=== PATIENT | female | born 1995 | race Caucasian/White ===

== ENCOUNTER 2020-09-04 23:54 | Emergency (ER) | payer OTHER ==
[2020-09-05 03:06] LABS: BUN/CREATININE RATIO 19 (0-10)
[2020-09-05 03:16] LABS: HEMOGLOBIN 11.7 gm/dl (12.3-15.3); RED BLOOD COUNT 4.35 M/UL (4.00-5.10)
[2020-09-05] MEDS ORDERED: AEROCHAMBER1 EA XX (06:36)
[2020-09-05] MEDS ORDERED: VENTOLIN HFA 66.7 GM INH (06:36)
== END 2020-09-05 06:30 | disposition home or self-care (01) ==
LOC: ER1 23:54
PROVIDERS: Family Medicine
DX: R06.00 Dyspnea, unspecified (principal); J45.909 Unspecified asthma, uncomplicated; E11.9 Type 2 diabetes mellitus without complications; Z20.822 Contact with and (suspected) exposure to COVID-19; F17.210 Nicotine dependence, cigarettes, uncomplicated; Z79.4 Long term (current) use of insulin
CPT/HCPCS: 0240U; 71045; 80053; 82550; 82553; 83874; 84484; 85025; 93005; 99285

== ENCOUNTER 2021-03-22 03:18 | Emergency (ER) | payer OTHER ==
[~2021-03-22 03:18] MED LIST: AEROCHAMBER1 EA XX; VENTOLIN HFA 66.7 GM INH
[2021-03-22 03:40] LABS: HEMOGLOBIN 12.8 gm/dl (12.3-15.3); RED BLOOD COUNT 4.64 M/UL (4.00-5.10); WHITE BLOOD COUNT 14.2 K/UL (4.5-11.0)
[2021-03-22 04:05] LABS: BUN/CREATININE RATIO 8 (0-10)
[2021-03-22] MEDS ORDERED: PREDNISONE20 MG PO (06:50)
== END 2021-03-22 06:55 | disposition home or self-care (01) ==
LOC: ER1 03:18
PROVIDERS: Family Medicine
DX: J45.901 Unspecified asthma with (acute) exacerbation (principal); F41.0 Panic disorder [episodic paroxysmal anxiety]; E11.9 Type 2 diabetes mellitus without complications; F17.200 Nicotine dependence, unspecified, uncomplicated; Z88.1 Allergy status to other antibiotic agents; J02.9 Acute pharyngitis, unspecified; Z20.822 Contact with and (suspected) exposure to COVID-19
CPT/HCPCS: 71045; 80053; 80307; 81001; 82550; 82553; 82803; 82962; 83605; 83874; 84484; 85025; 87081; 87880; 96374; 96375; 99285; J0696; J2930; U0002

== ENCOUNTER 2021-11-17 17:23 | Inpatient (IN) | payer MEDICAID ==
[~2021-11-17] VITALS: Ht 149.9 cm; Wt 83.7 kg
[~2021-11-17 17:23] MED LIST changes: +PREDNISONE20 MG PO
[2021-11-17 20:07] LABS: HEMOGLOBIN 11.7 gm/dl (12.3-15.3); RED BLOOD COUNT 4.18 M/UL (4.00-5.10); WHITE BLOOD COUNT 15.8 K/UL (4.5-11.0)
[2021-11-17 20:09] LABS: BUN/CREATININE RATIO 21 (0-10)
[2021-11-18 02:54] LABS: HEMOGLOBIN 11.6 gm/dl (12.3-15.3); RED BLOOD COUNT 4.18 M/UL (4.00-5.10); WHITE BLOOD COUNT 14.2 K/UL (4.5-11.0)
[2021-11-18 03:24] LABS: BUN/CREATININE RATIO 23 (0-10)
[2021-11-18] MEDS ORDERED: LEVOFLOXACIN500 MG PO (10:35)
[2021-11-18] MEDS ORDERED: DOXYCYCLINE HY100 MG PO (10:35)
[2021-11-18] MEDS ORDERED: ABILIFY20 MG PO (11:12)
[2021-11-18] MEDS ORDERED: DEPAKOTE ER500 MG PO (11:13)
[2021-11-18] MEDS ORDERED: PROPRANOLOL HCL20 MG PO (11:14)
[2021-11-18] MEDS ORDERED: QUETIAPINE FUM400 MG PO (11:14)
[2021-11-19 03:55] LABS: HEMOGLOBIN 10.6 gm/dl (12.3-15.3); RED BLOOD COUNT 3.85 M/UL (4.00-5.10); WHITE BLOOD COUNT 10.7 K/UL (4.5-11.0)
[2021-11-19 05:11] LABS: BUN/CREATININE RATIO 14 (0-10)
--- NOTE | 2021-11-21 06:45 | NUR ---
BP 85/53. NOTIFIED MD AND RECIEVED ORDERS. WILL CONTINUE TO MONITOR.
[2021-11-21 06:49] LABS: HEMOGLOBIN 10.3 gm/dl (12.3-15.3); RED BLOOD COUNT 3.77 M/UL (4.00-5.10); WHITE BLOOD COUNT 8.3 K/UL (4.5-11.0)
[2021-11-21] MEDS ORDERED: ULTRAM50 MG PO (08:43)
[2021-11-21] MEDS ORDERED: ZYVOX600 MG PO (08:53)
[2021-11-21 14:07] LABS: BUN/CREATININE RATIO 19 (0-10)
--- NOTE | 2021-11-21 14:50 | NUR ---
PTS IV INFLITRATED AND PT IS REFUSING TO ALLOW US TO STICK HER AGAIN FOR ANOTHER IV. IS AWARE
[2021-11-22 07:06] LABS: HEMOGLOBIN 11.7 gm/dl (12.3-15.3)
[2021-11-22 07:18] LABS: RED BLOOD COUNT 4.32 M/UL (4.00-5.10); WHITE BLOOD COUNT 12.6 K/UL (4.5-11.0)
[2021-11-22 07:58] LABS: BUN/CREATININE RATIO 12 (0-10)
== END 2021-11-22 09:31 | disposition left against medical advice (07) | DRG 872 ==
LOC: ER1 17:23 → CDU 21:36 → M/S 21:36
PROVIDERS: Internal Medicine; Physician Assistant; Physician Assistant Medical; ADMIT Internal Medicine
PROC: 3E03329 Introduction of Other Anti-infective into Peripheral Vein, Percutaneous Approach (ICD-10-PCS; principal; 2021-11-17)
PROC: 0J9G0ZZ Drainage of Right Lower Arm Subcutaneous Tissue and Fascia, Open Approach (ICD-10-PCS; 2021-11-19)
DX: A41.02 Sepsis due to Methicillin resistant Staphylococcus aureus (principal); L03.113 Cellulitis of right upper limb; Z20.822 Contact with and (suspected) exposure to COVID-19; L03.312 Cellulitis of back [any part except buttock and flank]; L03.114 Cellulitis of left upper limb; L02.413 Cutaneous abscess of right upper limb; E66.01 Morbid (severe) obesity due to excess calories; F17.210 Nicotine dependence, cigarettes, uncomplicated; Z98.891 History of uterine scar from previous surgery; Z83.3 Family history of diabetes mellitus; Z68.37 Body mass index [BMI] 37.0-37.9, adult; Z90.49 Acquired absence of other specified parts of digestive tract
CPT/HCPCS: 36415; 73201; 73220; 80048; 80053; 80202; 80307; 83036; 83735; 84100; 84132; 84439; 84443; 84703; 85025; 85027; 85652; 86140; 87070; 87077; 87081; 87186; 87205; 94640; 94664; 94760; 96374; 96375; 96376; 99284; A9577; G0378; J0696; J1100; J1170; J1650; J1885; J2001; J2250; J2270; J2405; J2704; J3010; J3370; J7030; J7070; Q0177; Q9967

== ENCOUNTER 2022-01-24 15:07 | Emergency (ER) | payer OTHER ==
[~2022-01-24 15:07] MED LIST changes: +ABILIFY20 MG PO; +DEPAKOTE ER500 MG PO; +DOXYCYCLINE HY100 MG PO; +LEVOFLOXACIN500 MG PO; +PROPRANOLOL HCL20 MG PO; +QUETIAPINE FUM400 MG PO; +ULTRAM50 MG PO; +ZYVOX600 MG PO
== END 2022-01-24 18:40 | disposition home or self-care (01) ==
LOC: ER1 15:07
DX: J02.9 Acute pharyngitis, unspecified (principal); M54.50 Low back pain, unspecified; M54.2 Cervicalgia; J45.909 Unspecified asthma, uncomplicated; E11.9 Type 2 diabetes mellitus without complications; F17.200 Nicotine dependence, unspecified, uncomplicated; Z86.19 Personal history of other infectious and parasitic diseases; Z90.49 Acquired absence of other specified parts of digestive tract
CPT/HCPCS: 72100; 87081; 87880; 99284; U0002